=== PATIENT | male | born 1980 | race Caucasian/White ===

== ENCOUNTER 2022-11-07 13:55 | Emergency (ER) | payer MEDICAID ==
[~2022-11-07] VITALS: Ht 175.3 cm; Wt 118.0 kg
[2022-11-07 14:01] VITALS: BP 131/85
== END 2022-11-07 19:07 | disposition home or self-care (01) ==
LOC: ER 13:55
DX: Z11.1 Encounter for screening for respiratory tuberculosis (principal); E11.9 Type 2 diabetes mellitus without complications
CPT/HCPCS: 71045; 99283